=== PATIENT | male | born 1930 | race Caucasian/White ===

== ENCOUNTER 2016-11-17 20:22 | Emergency (ER) | payer MEDICARE ==
[2016-11-17 21:18] LABS: #Basophils 0.2 thou/uL (0.0-0.2); #Eosinphils 0.4 thou/uL (0.0-0.7); #Monocytes 1.3 thou/uL (0.11-0.59); #Neutrophils 10.6 thou/uL (1.40-6.50); %Basophils 1.8 % (0.0-1.0); %Eosinophils 3.2 % (0.0-10.0); %Lymphocytes 7.3 % (21.0-51.0); %Monocytes 9.6 % (0.0-10.0); %Neutrophils 78.1 % (42.0-75.0); Hemoglobin 19.1 g/dL (14.0-18.0); Mean Corpuscular HGB CONC 32.5 g/dL (32.0-36.0); Mean Corpuscular Hemoglobin 30.1 pg (27.0-31.0); Mean Corpuscular Volume 92.5 fl (80.0-94.0); Mean Platelet Volume 7.7 fL (7.4-10.4); Platelet Count 259 thou/uL (130-400); RBC Distribution Width 13.3 % (11.5-14.5); Red Blood Cell (RBC) Count 6.37 mill/uL (4.70-6.10); White Blood Cell (WBC) Count 13.5 thou/uL (4.8-10.8)
[2016-11-17 21:28] LABS: INR-International Normal Ratio 1.1; Prothrombin Time 14.1 SEC (12.0-14.7)
[2016-11-17 21:33] LABS: ALT (SGPT) 78 U/L (0-55); AST (SGOT) 42 U/L (5-34); Albumin 4.2 g/dL (3.4-4.8); Alkaline Phosphatase 103 U/L (40-150); Anion Gap 15 mmol/L (10-20); BUN (Urea Nitrogen) 19 mg/dL (8.4-25.7); Calc. Creatinine Clearance 0 mL/min (70-130); Calcium 9.5 mg/dL (7.8-10.44); Carbon Dioxide 29 mmol/L (23-31); Chloride 94 mmol/L (98-107); Estimated GFR-MDRD 65; Globulin 2.9 g/dL (2.4-3.5); Glucose 114 mg/dL (83-110); Potassium 4.6 mmol/L (3.5-5.1); Protein, Total 7.1 g/dL (5.8-8.1); Sodium 133 mmol/L (136-145)
[2016-11-17] MEDS ORDERED: cloNIDine HCl 0.1 MG TAB ONE ×2 (22:30→22:31)
== END 2016-11-17 22:38 | disposition left against medical advice (07) ==
LOC: MADERS 20:22
DX: I10 Essential (primary) hypertension (principal); K62.5 Hemorrhage of anus and rectum; Z87.891 Personal history of nicotine dependence
CPT/HCPCS: 80053; 85025; 85610; 85730; 86850; 86900; 86901; 99283

== ENCOUNTER 2018-01-23 10:21 | Outpatient (CLI) | payer MEDICARE ==
[2018-01-23 11:09] LABS: ALT (SGPT) 11 U/L (8-55); AST (SGOT) 18 U/L (5-34); Albumin 3.8 g/dL (3.4-4.8); Alkaline Phosphatase 64 U/L (40-150); Anion Gap 13 mmol/L (10-20); BUN (Urea Nitrogen) 31 mg/dL (8.4-25.7); Bilirubin, Total 0.5 mg/dL (0.2-1.2); Calc. Creatinine Clearance 0 mL/min (70-130); Calcium 9.5 mg/dL (7.8-10.44); Carbon Dioxide 25 mmol/L (23-31); Chloride 104 mmol/L (98-107); Estimated GFR-MDRD 62; Glucose 117 mg/dL (83-110); Potassium 5.2 mmol/L (3.5-5.1); Protein, Total 6.8 g/dL (5.8-8.1); Sodium 137 mmol/L (136-145)
[2018-01-23 11:27] LABS: #Lymphocytes 0.7 thou/uL (1.20-3.40); #Monocytes 0.2 thou/uL (0.11-0.59); #Neutrophils 6.4 thou/uL (1.40-6.50); %Basophils 0.6 % (0.0-1.0); %Eosinophils 0.5 % (0.0-10.0); %Lymphocytes 10.1 % (21.0-51.0); %Monocytes 2.2 % (0.0-10.0); %Neutrophils 86.6 % (42.0-75.0); Hemoglobin 13.7 g/dL (14.0-18.0); Mean Corpuscular Hemoglobin 26.4 pg (27.0-31.0); Mean Corpuscular Volume 85.3 fl (80.0-94.0); Platelet Count 248 thou/uL (130-400); RBC Distribution Width 13.7 % (11.5-14.5); White Blood Cell (WBC) Count 7.4 thou/uL (4.8-10.8)
--- NOTE | 2018-01-23 11:44 | RAD ---
3 VIEWS RIGHT HAND: Date: )01/23/18 HISTORY: Osteoarthritis. COMPARISON: None. FINDINGS: There is degenerative change of the first carpometacarpal joint space. No erosive changes involving t he radial or ulnar styloid. Radiopaque foreign body involving the second digit is identified. IMPRESSION: 1. Degenerative changes as above. 2. Radiopaque foreign body second digit. Correlate clinically. POS: [facility]
--- NOTE | 2018-01-23 11:44 | RAD ---
THREE VIEWS OF THE LEFT WRIST: DATE: 01/23/18. COMPARISON: None. History Osteoarthritis. FINDINGS: There is moderate degenerative change at the radiocarpal joint with interspace narrowing and subchond ral sclerosis. There is prominent degenerative change at the 1st carpometacarpal joint with prominen t joint space narrowing, subchondral sclerosis, and osteophyte formation. There is no displaced frac ture or evidence of dislocation seen. IMPRESSION: Degenerative changes in the radiocarpal joint and the 1st carpometacarpal joint with no acute fractur e or dislocation seen. POS: [facility]
[2018-01-23 11:45] LABS: Bilirubin Negative (Negative); Blood, Urine Small (Negative); Clarity Clear (Clear); Glucose, Urine (Dipstick) Negative (Negative); Leukocyte Large (Negative); Nitrite Negative (Negative); Protein, Urine (Dipstick) 30 mg/dL (Neg-Trace); Urobilinogen 0.2 mg/dL (0.2-1.0); pH, Urine 5.5 (5.0-9.0)
--- NOTE | 2018-01-23 11:48 | RAD ---
THREE VIEWS OF RIGHT WRIST: DATE: 01/23/18. COMPARISON: None. HISTORY: Osteoarthritis. FINDINGS: There is severe degenerative change at the 1st carpometacarpal joint with joint space narrowing, subc hondral sclerosis, and osteophyte formation. Calcified foci are noted overlying the soft tissues bridget ng the dorsal aspect of the 2nd proximal phalanx and adjacent to the distal right radius along the vo lar aspect. There is no acute fracture or evidence of dislocation seen. There is a round metallic structure measuring in the 2 mm range which projects over the soft tissues near the 1st metacarpal shaft distally, nonspecific. This suggests a metallic foreign body. IMPRESSION: No acute findings. Question small round metallic foreign body within the soft tissues near the 1st m etacarpal. Prominent degenerative changes are noted, especially at the 1st carpometacarpal joint. POS: [facility]
--- NOTE | 2018-01-23 11:53 | RAD ---
LEFT HAND 3 VIEWS: DATE: 01/23/18. COMPARISON: None. HISTORY: Osteoarthritis. FINDINGS: There is prominent degenerative change at the 1st carpometacarpal joint with joint space narrowing, s ubchondral sclerosis, and osteophyte formation. There is a mild degree of degenerative change at the 1st metacarpophalangeal joint as well. There are multifocal scattered areas of joint space narrowing and subchondral sclerosis involving the distal and proximal interphalangeal joints of the 2nd through 5th fingers. There is no acute fractu re or evidence of dislocation seen. IMPRESSION: Multilevel degenerative change, most prominent at the 1st carpometacarpal joint. POS: [facility]
[2018-01-24 17:36] LABS: ANA Symphony (Qualitative) Negative (Negative); CCP IgG Antibody Less than 0.4 EliAU/mL (<7 Negative); EliA RAS New Method **** NEW METHOD ****; Rheumatoid Factor IgM Antibody 1.1 IU/mL; dsDNA IgG Antibody Less than 0.5 IU/mL (<10 Negative)
== END 2018-01-23 10:22 | disposition home or self-care (01) ==
LOC: MADLAB 10:21
DX: M19.042 Primary osteoarthritis, left hand (principal); M19.041 Primary osteoarthritis, right hand; M19.031 Primary osteoarthritis, right wrist; M19.032 Primary osteoarthritis, left wrist
CPT/HCPCS: 36415; 80053; 81003; 83520; 84550; 85025; 85652; 86038; 86140; 86200; 86225